=== PATIENT | male | born 1990 | race Caucasian/White ===

== ENCOUNTER 2016-11-30 10:21 | Emergency (ER) | payer BC ==
[~2016-11-30] VITALS: Ht 188 cm; Wt 79.4 kg
[2016-11-30] MEDS ORDERED: TDAP DIPH,PERTUSS,TET VAC/PF 0.5 ML DISP.SYRIN IM ONE ×2 (11:30→11:48)
--- NOTE | 2016-11-30 13:20 | NUR ---
Patient discharged to home in stable conditon. Written and verbal after care instructions given. Patient verbalizes understanding of instructions.PT WALKS IN STEADY GAIT, DENEIS ANY DIZZINESS OR HEADACHE.
[2016-11-30 13:21] VITALS: BP 139/81
== END 2016-11-30 13:21 | disposition home or self-care (01) ==
LOC: ER 10:21
DX: S01.01XA Laceration without foreign body of scalp, initial encounter (principal); X58.XXXA Exposure to other specified factors, initial encounter; Y93.89 Activity, other specified; Y99.8 Other external cause status; Y92.89 Other specified places as the place of occurrence of the external cause
CPT/HCPCS: 90715; A4663